=== PATIENT | male | born 1945 | race African-American/Black ===

== ENCOUNTER 2017-07-30 17:45 | Inpatient (IN) | payer MEDICARE, OTHER ==
[2017-07-30 19:42] LABS: % BASOPHILS 0.3 % (0.0-2.0); % LYMPHOCYTES 27.6 % (20.0-50.0); % MONOCYTES 7.9 % (2.0-10.0); % NEUTROPHILS 62.2 % (40.0-80.0); EOSINOPHILE ABSOLUTE 0.2 Th/cmm (0.1-0.4); HEMATOCRIT 42.3 % (41.0-60); HEMOGLOBIN 13.9 gm/dL (12-16); MEAN CORPUSCULAR HEMOGLOBIN 27.6 pg (27.0-31.0); MEAN CORPUSCULAR HGB CONC 32.9 pg (28.0-36.0); MEAN PLATELET VOLUME 11.3 fl; MONOCYTE ABSOLUTE 0.8 Th/cmm (0.3-1.0); NEUTROPHILE ABSOLUTE 6.7 Th/cmm (1.8-8.0); PLATELET COUNT 184 Th/cmm (150-400); RED BLOOD COUNT 5.03 Mil/cmm (3.80-5.80); RED CELL DISTRIBUTION WIDTH 14.2 % (11.5-20.0); WHITE BLOOD COUNT 10.7 Th/cmm (4.8-10.8)
--- NOTE | 2017-07-30 19:44 | ED Physician Chart ---
ED Chief Complaint/HPI - Patient Information Date Seen:: 07/30/17 Time Seen:: 18:00 Chief Complaint:: Depression History of Present Illness:: onset x 3 days of depression and decreased activity; no reportb of trauma, SIs, H/As, S/T, neck pain, C/P, SOB, Abd. Pain, A/N/V/D/C, fever, chills, or urinary s/s Allergies:: Allergies Allergy/AdvReac Type Severity Reaction Status Date / Time Penicillins Allergy Verified 07/30/17 18:01 Vitals:: Vital Signs - 8 hr 07/30/17 18:02 Temp 97.7 F HR 61 RR 17 BP 139/81 O2 Sat % 99 Historian:: Patient, EMS Review:: Nurse's Note Reviewed, Old Chart Reviewed, EMS run form Reviewed ED Review of Systems - Review of Systems General/Constitutional: No fever, No chills, No weight loss, No weakness, No diaphoresis, No edema, No loss of appetite Skin: No skin lesions, No rash, No bruising Head: No headache, No light-headedness Eyes: No loss of vision, No pain, No diplopia ENT: No earache, No nasal drainage, No sore throat, No tinnitus Neck: No neck pain, No swelling, No thyromegaly, No stiffness, No mass noted Cardio Vascular: No chest pain, No palpitations, No PND, No orthopnea, No edema Pulmonary: No SOB, No cough, No sputum, No wheezing GI: No nausea, No vomiting, No diarrhea, No pain, No melena, No hematochezia, No constipation, No hematemesis G/U: No dysuria, No frequency, No hematuria Musculoskeletal: No bone or joint pain, No back pain, No muscle pain Endocrine: No polyuria, No polydipsia Psychiatric: Prior psych history, Depression, Anxiety, No suicidal ideation, No homicidal ideation, No auditory hallucination, No visual hallucination Hematopoietic: No bruising, No lymphadenopathy Allergic/Immuno: No urticaria, No angioedema Neurological: No syncope, No focal symptoms, No weakness, No paresthesia, No headache, No seizure, No dizziness, No confusion, No vertigo ED Past Medical History - Past Medical History Obtainable: Yes Past Medical History: HTN, DM, CAD, CVA/TIA, Dyslipidemia Family History: Diabetes Melitus, HTN Social History: Non Smoker, No Alcohol, No Drug Use, Single, Care Facility Surgical History: None Psychiatricy History: Depression Medication: Reviewed ED Physical Exam - Physical Examination General/Constitutional: Awake, Well-developed, well-nourished, Alert, No distress, GCS 15, Non-toxic appearing, Ambulatory Head: Atraumatic Eyes: Lids, conjuctiva normal, PERRL, EOMI Skin: Nl inspection, No rash, No skin lesions, No ecchymosis, Well hydrated, No lymphadenopathy ENMT: External ears, nose nl, TM canals nl, Nasal exam nl, Lips, teeth, gums nl , Oropharynx nl, Tonsils nl Neck: Nontender, Full ROM w/o pain, No JVD, No nuchal rigidity, No bruit, No mass, No stridor Respiratory: Nl effort/Exclusion, Clear to Auscultation, No Wheeze/Rhonchi/Rales Cardio Vascular: RRR, No murmur, gallop, rubs, NL S1 S2, Carotid/Femoral/Distal pulses equal bilaterally GI: No tenderness/rebounding/guarding, No organomegaly, No hernia, Normal BS's, Nondistended, No mass/bruits, No McBurney tenderness : No CVA tenderness Extremities: No tenderness or effusion, Full ROM, normal strength in all extremities, No edema, Normal digits & nails Neuro/Psych: Alert/oriented, DTR's symmetric, Normal sensory exam, Normal motor strength, Judgement/insight normal, Mood normal, Normal gait, No focal deficits Other Neuro/Psych comments:: + Psychomotor Retardation; Mood/Affect: Stable; no SIs Misc: Normal back, No paraspinal tenderness ED Labs/Radiology/EKG Results - Lab Results Comments:: unremarkable - EKG Interpretations EKG Time:: 19:50 Rate & Rhythm: 86; NSR Comments:: non-specific st-t changes ED Septic Shock - . Is Septic Shock (SBP<90, OR Lactate>4 mmol\L) present?: No - <6hrs of presentation: Vital Signs: Vital Signs - 8 hr 07/30/17 18:02 Temp 97.7 F HR 61 RR 17 BP 139/81 O2 Sat % 99 ED Reassessment (Disposition) - Reassessment Reassessment Condition:: Improved - Diagnosis Diagnosis:: Medical clearance; Depression - Aftercare/Follow up Instructions Aftercare/Follow-Up Instructions:: Counseled pt regarding lab results/diagnosis & need follow up, Counseled pt & family regarding lab results/diagnosis & need follow up - Patient Disposition Discharge/Transfer:: Acute Care w/in this hosp Admitted to:: [facility] Condition at Disposition:: Stable, Improved
[2017-07-30 20:06] LABS: ACETAMINOPHEN < 10.0 ug/mL (10.0-30.0); ALB/GLOB RATIO 1.3 (1.0-1.8); ALBUMIN 3.9 gm/dL (4.2-5.5); ALKALINE PHOSPHATASE 59 U/L (34-104); ANION GAP 9.4 (7.0-16.0); BILIRUBIN,TOTAL 0.4 mg/dL (0.3-1.0); BUN - UREA NITROGEN 17 mg/dL (7-25); CALCIUM SERUM 9.7 mg/dL (8.6-10.3); CARBON DIOXIDE 29.1 mEq/L (21.0-31.0); CHLORIDE 106 mEq/L (98-107); CHOLESTEROL 139 mg/dL (<200); CREATININE - SERUM 1.5 mg/dL (0.7-1.3); GFR AFRICAN-AMERICAN 59.5 ml/min (>90); GFR NON AFRICAN-AMERICAN 49.2 ml/min; GLUCOSE 108 mg/dL (70-105); HDL -HIGH DENSITY LIPOPROTEIN 43 mg/dL (23-92); POTASSIUM SERUM 3.5 mEq/L (3.5-5.1); SALICYLATES (ASPIRIN) < 25.0 mg/L (30.0-100.0); SGOT 13 U/L (13-39); SGPT/ALT 14 U/L (7-52); SODIUM SERUM 141 mEq/L (136-145); TOTAL PROTEIN,SERUM 6.9 gm/dL (6.0-8.3); TRIGLYCERIDES 104 mg/dL (<150)
[2017-07-30 22:27] VITALS: BP 119/72
[2017-07-30] MEDS ORDERED: Hydrocodone/APAP 5mg/325mg Tab PO PRN (23:28)
[2017-07-30] MEDS ORDERED: Magnesium Hydroxide (MOM) 30 mL UDC PO PRN (23:28)
[2017-07-31] MEDS: Pantoprazole 40 mg EC Tab PO SCH (08:21)
[2017-07-31] MEDS: Multivitamin w/ Minerals Tab PO SCH (08:21)
[2017-07-31] MEDS: Potassium Chloride 10 mEq ER Tab PO SCH (08:23)
--- NOTE | 2017-07-31 16:32 | Internal Medicine Prog Note ---
Internal Medicine Subjective - Subjective Service Date: 07/31/17 ([id number] hn) Internal Medicine Objective - Results Result Diagrams: 07/30/17 19:33 07/30/17 19:33 Recent Labs: Laboratory Last Values WBC 10.7 Th/cmm (4.8-10.8) 07/30/17 19:33 RBC 5.03 Mil/cmm (3.80-5.80) 07/30/17 19:33 Hgb 13.9 gm/dL (12-16) 07/30/17 19:33 Hct 42.3 % (41.0-60) 07/30/17 19:33 MCV 84.0 fl (80-99) 07/30/17 19:33 MCH 27.6 pg (27.0-31.0) 07/30/17 19:33 MCHC Differential 32.9 pg (28.0-36.0) 07/30/17 19:33 RDW 14.2 % (11.5-20.0) 07/30/17 19:33 Plt Count 184 Th/cmm (150-400) 07/30/17 19:33 MPV 11.3 fl 07/30/17 19:33 Neutrophils % 62.2 % (40.0-80.0) 07/30/17 19:33 Lymphocytes % 27.6 % (20.0-50.0) 07/30/17 19:33 Monocytes % 7.9 % (2.0-10.0) 07/30/17 19:33 Eosinophils % 2.0 % (0.0-5.0) 07/30/17 19:33 Basophils % 0.3 % (0.0-2.0) 07/30/17 19:33 Sodium 141 mEq/L (136-145) 07/30/17 19:33 Potassium 3.5 mEq/L (3.5-5.1) 07/30/17 19:33 Chloride 106 mEq/L (98-107) 07/30/17 19:33 Carbon Dioxide 29.1 mEq/L (21.0-31.0) 07/30/17 19:33 Anion Gap 9.4 (7.0-16.0) 07/30/17 19:33 BUN 17 mg/dL (7-25) 07/30/17 19:33 Creatinine 1.5 mg/dL (0.7-1.3) H 07/30/17 19:33 Est GFR ( Amer) 59.5 ml/min (>90) 07/30/17 19:33 Est GFR (Non-Af Amer) 49.2 ml/min 07/30/17 19:33 BUN/Creatinine Ratio 11.3 07/30/17 19:33 Glucose 108 mg/dL (70-105) H 07/30/17 19:33 Calcium 9.7 mg/dL (8.6-10.3) 07/30/17 19:33 Total Bilirubin 0.4 mg/dL (0.3-1.0) 07/30/17 19:33 AST 13 U/L (13-39) 07/30/17 19:33 ALT 14 U/L (7-52) 07/30/17 19:33 Alkaline Phosphatase 59 U/L (34-104) 07/30/17 19:33 Total Protein 6.9 gm/dL (6.0-8.3) 07/30/17 19:33 Albumin 3.9 gm/dL (4.2-5.5) L 07/30/17 19:33 Globulin 3.0 gm/dL 07/30/17 19:33 Albumin/Globulin Ratio 1.3 (1.0-1.8) 07/30/17 19:33 Triglycerides 104 mg/dL (<150) 07/30/17 19:33 Cholesterol 139 mg/dL (<200) 07/30/17 19:33 LDL Cholesterol Direct 85 mg/dL (75-193) 07/30/17 19:33 HDL Cholesterol 43 mg/dL (23-92) 07/30/17 19:33 TSH 1.58 uIU/ml (0.34-5.60) 07/30/17 19:33 Salicylates < 25.0 mg/L (30.0-100.0) L 07/30/17 19:33 Acetaminophen < 10.0 ug/mL (10.0-30.0) L 07/30/17 19:33 Ethyl Alcohol < 10 mg/dL (0-10) 07/30/17 19:33 - Physical Exam Vitals and I&O: Vital Signs Temp 97.4 F 07/31/17 15:56 Pulse 65 07/31/17 15:56 Resp 18 07/31/17 15:56 BP 116/71 07/31/17 15:56 Pulse Ox 97 07/31/17 15:56 Intake & Output 07/30/17 07/31/17 07/31/17 18:59 06:59 18:59 Intake Total 0 Balance 0 Intake: Oral 0 Other: # Voids 1 Active Medications: Current Medications Acetaminophen/Hydrocodone Bitart ([place] 5mg/325mg) 1 tab PO BID PRN PRN Reason: Pain (Moderate) Stop: 09/28/17 23:27 Amlodipine Besylate (Norvasc) 10 mg PO QPM [facility] Stop: 09/29/17 16:59 Aspirin (Ecotrin) 81 mg PO DAILY [facility] Stop: 09/29/17 15:14 Bisacodyl (Dulcolax 10 Mg Supp) 10 mg RC DAILY PRN PRN Reason: IF MOM INEFFECTIVE Stop: 09/28/17 23:27 Calcium Carbonate (Os-James) 500 mg PO BID [facility] Stop: 09/29/17 08:59 Last Admin: 07/31/17 08:21 Dose: 500 mg Citalopram Hydrobromide (Celexa) 5 mg PO DAILY [facility] Stop: 09/29/17 08:59 Last Admin: 07/31/17 08:22 Dose: 5 mg Clopidogrel Bisulfate (Plavix) 75 mg PO DAILY [facility] Stop: 09/29/17 08:59 Last Admin: 07/31/17 08:22 Dose: 75 mg Docusate Sodium (Colace) 200 mg PO BID [facility] Stop: 09/29/17 08:59 Last Admin: 07/31/17 08:21 Dose: 200 mg Furosemide (Lasix) 40 mg PO 1200 [facility] Stop: 09/29/17 11:59 Last Admin: 07/31/17 12:16 Dose: 40 mg Furosemide (Lasix) 80 mg PO 0900 [facility] Stop: 09/29/17 08:59 Last Admin: 07/31/17 08:21 Dose: 80 mg Levetiracetam (Keppra) 250 mg PO DAILY [facility] Stop: 09/29/17 08:59 Last Admin: 07/31/17 08:21 Dose: 250 mg Levetiracetam (Keppra) 500 mg PO HS [facility] Stop: 09/29/17 20:59 Lisinopril (Zestril) 10 mg PO DAILY IV[facility] Stop: 09/29/17 08:59 Last Admin: 07/31/17 08:22 Dose: 10 mg Lorazepam (Ativan) 0.5 mg PO Q4HR PRN; Protocol PRN Reason: Anxiety Stop: 08/29/17 23:15 Magnesium Hydroxide (Milk Of Magnesia) 30 ml PO DAILY PRN PRN Reason: BOWEL MANAGEMENT Stop: 09/28/17 23:27 Pantoprazole Sodium (Protonix) 40 mg PO DAILY [facility] Stop: 09/29/17 08:59 Last Admin: 07/31/17 08:21 Dose: 40 mg Potassium Chloride (Klor-Con) 30 meq PO DAILY [facility] Stop: 09/29/17 08:59 Last Admin: 07/31/17 08:23 Dose: 30 meq Senna (Senna) 17.2 mg PO BID [facility] Stop: 09/29/17 08:59 Last Admin: 07/31/17 08:22 Dose: 17.2 mg Simvastatin (Zocor) 20 mg PO HS IVETH PRN Reason: Protocol Stop: 09/29/17 20:59 Vitamin D (Vitamin D) 800 iu PO DAILY [facility] Stop: 09/29/17 08:59 Last Admin: 07/31/17 08:21 Dose: 800 iu Zolpidem Tartrate (Ambien) 5 mg PO HS PRN PRN Reason: Insomnia Stop: 09/28/17 23:15
--- NOTE | 2017-07-31 18:44 | History & Physical ---
ADMIT DATE: 07/31/2017 DICTATING FOR: Jimbo Bey DO CHIEF COMPLAINT: Depression. HISTORY OF PRESENT ILLNESS: This is a 71-year-old -Burm[place] male who is admitted to the Geropsych Unit due to a 3-day history of depression. The patient denies any fevers, chills, night sweats, weight loss or any chest pain. PAST MEDICAL HISTORY: Hypertension, diabetes, CAD, CVA, TIA, dyslipidemia. PAST SURGICAL HISTORY: None. ALLERGIES: PENICILLIN. SOCIAL HISTORY: The patient is a detention resident, requiring 24-hour nursing care. MEDICATIONS: Please see medication list. REVIEW OF SYSTEMS: GENERAL: Denies any fevers or any chills. CARDIOVASCULAR: Denies chest pain. RESPIRATORY: Denies shortness of breath. GASTROINTESTINAL: Denies nausea, vomiting, and abdominal pain. GENITOURINARY: Denies increased frequency or dysuria. NEUROLOGIC: No headaches, seizures or syncope. All other systems are reviewed and are negative. PHYSICAL EXAMINATION: GENERAL: The patient is well-developed, well-nourished, no acute distress. VITAL SIGNS: Temperature 97.4, heart rate 65, blood pressure 116/71, respirations 18, O2 97%. HEENT: Head normocephalic, atraumatic. NECK: Supple. No mass. LUNGS: Clear bilaterally. HEART: Regular rate and rhythm. ABDOMEN: Soft, nontender. LABORATORY DATA: WBC 10.7, H and H 13.9 and 42.3, platelet of 184. Sodium 141, potassium 3.5, chloride 106, BUN 17, creatinine 1.5, albumin 3.9. ASSESSMENT: 1. Depression. 2. Mild protein-calorie malnutrition. 3. Diabetes. 4. History of CVA. 5. Hypertension. 6. CAD. 7. Dyslipidemia. PLAN: We will monitor the patient. We will do Accu-Chek with sliding scale. We will adjust the patient's blood pressure medications accordingly. We will continue to follow this patient. [facility]# [id number]
--- NOTE | 2017-08-01 05:43 | Psychosocial Evaluation ---
DATE OF SERVICE: 07/30/2017 IDENTIFYING DATA: The patient is a 71-year-old -[place] male, resident of [facility]. JUSTIFICATION OF HOSPITALIZATION: The patient is admitted here for his aggressive behavior. CHIEF COMPLAINT: "I am upset." HISTORY OF PRESENT ILLNESS: This is the first psychiatric hospitalization to the [facility] for this patient, who is reported to have multiple medical problems. On the day of the hospitalization, the patient is reported to have been getting easily irritable, angry and upset. The patient could not be contained at a lower level of care and hence, the patient has been transferred over here for further stabilization. Review of the chart indicates that the patient is being maintained on Celexa 5 mg on a daily basis for his depression. PAST PSYCHIATRIC HISTORY: Details are not known. MEDICAL HISTORY: Physical examination is requested to be done by Dr. Bey. SUBSTANCE ABUSE HISTORY: None. PHYSICAL OR SEXUAL ABUSE HISTORY: None. LEGAL PROBLEMS: None at this time. MENTAL STATUS EXAMINATION: The patient is a 71-year-old, looking his stated age, moderately obese, superficially cooperative. Eye contact is poor. Mood is noted to be irritable. Affect is constricted. The patient is reported to have multiple medical problems. He has history cerebrovascular accident with hemiplegia, hypertension, seizure disorder, diabetes mellitus type 2 with nephropathy, chronic kidney disease, and hyperlipidemia. The patient is stating that he has been doing okay, but the patient is getting easily irritable. The patient has been lately losing his appetite and has been not able to care for self and also the patient has been getting easily irritable and angry and hence, the patient has been referred over here for further stabilization. The patient is alert and awake and the patient knows that he is in the hospital. The patient has been getting easily irritable. No clear psychotic symptoms are noted. The patient's short term memory is noted to be poor. Long-term memory seems to be fair at this time. The patient's insight and judgment are noted to be impaired. DIAGNOSTIC IMPRESSION: AXIS I: Major depressive disorder and moderate. AXIS II: None. AXIS III: As per Dr. eBy. IMMEDIATE TREATMENT PLAN: The patient is going to be observed on the inpatient unit. Provide with supportive psychotherapy. The patient is going to be closely monitored. Encouraged him to participate in the groups and verbalize the concerns. Once stabilized, the patient is going to be discharged to self to be followed up on an outpatient basis. JOB# [id number]
[2017-08-01] MEDS: Pantoprazole 40 mg EC Tab PO SCH (08:15)
[2017-08-01] MEDS: Potassium Chloride 10 mEq ER Tab PO SCH (08:15)
[2017-08-01] MEDS: Multivitamin w/ Minerals Tab PO SCH (08:16)
--- NOTE | 2017-08-01 13:54 | Internal Medicine Prog Note ---
Internal Medicine Subjective - Subjective Service Date: 08/01/17 Patient seen and examined:: with staff Patient is:: awake, in wheelchair Per staff patient has:: tolerating meds Internal Medicine Objective - Results Result Diagrams: 07/30/17 19:33 07/30/17 19:33 Recent Labs: Laboratory Last Values WBC 10.7 Th/cmm (4.8-10.8) 07/30/17 19:33 RBC 5.03 Mil/cmm (3.80-5.80) 07/30/17 19:33 Hgb 13.9 gm/dL (12-16) 07/30/17 19:33 Hct 42.3 % (41.0-60) 07/30/17 19:33 MCV 84.0 fl (80-99) 07/30/17 19:33 MCH 27.6 pg (27.0-31.0) 07/30/17 19:33 MCHC Differential 32.9 pg (28.0-36.0) 07/30/17 19:33 RDW 14.2 % (11.5-20.0) 07/30/17 19:33 Plt Count 184 Th/cmm (150-400) 07/30/17 19:33 MPV 11.3 fl 07/30/17 19:33 Neutrophils % 62.2 % (40.0-80.0) 07/30/17 19:33 Lymphocytes % 27.6 % (20.0-50.0) 07/30/17 19:33 Monocytes % 7.9 % (2.0-10.0) 07/30/17 19:33 Eosinophils % 2.0 % (0.0-5.0) 07/30/17 19:33 Basophils % 0.3 % (0.0-2.0) 07/30/17 19:33 Sodium 141 mEq/L (136-145) 07/30/17 19:33 Potassium 3.5 mEq/L (3.5-5.1) 07/30/17 19:33 Chloride 106 mEq/L (98-107) 07/30/17 19:33 Carbon Dioxide 29.1 mEq/L (21.0-31.0) 07/30/17 19:33 Anion Gap 9.4 (7.0-16.0) 07/30/17 19:33 BUN 17 mg/dL (7-25) 07/30/17 19:33 Creatinine 1.5 mg/dL (0.7-1.3) H 07/30/17 19:33 Est GFR ( Amer) 59.5 ml/min (>90) 07/30/17 19:33 Est GFR (Non-Af Amer) 49.2 ml/min 07/30/17 19:33 BUN/Creatinine Ratio 11.3 07/30/17 19:33 Glucose 108 mg/dL (70-105) H 07/30/17 19:33 Hemoglobin A1c % 7.0 % (4.0-6.0) H 07/30/17 19:33 Calcium 9.7 mg/dL (8.6-10.3) 07/30/17 19:33 Total Bilirubin 0.4 mg/dL (0.3-1.0) 07/30/17 19:33 AST 13 U/L (13-39) 07/30/17 19:33 ALT 14 U/L (7-52) 07/30/17 19:33 Alkaline Phosphatase 59 U/L (34-104) 07/30/17 19:33 Total Protein 6.9 gm/dL (6.0-8.3) 07/30/17 19:33 Albumin 3.9 gm/dL (4.2-5.5) L 07/30/17 19:33 Globulin 3.0 gm/dL 07/30/17 19:33 Albumin/Globulin Ratio 1.3 (1.0-1.8) 07/30/17 19:33 Triglycerides 104 mg/dL (<150) 07/30/17 19:33 Cholesterol 139 mg/dL (<200) 07/30/17 19:33 LDL Cholesterol Direct 85 mg/dL (75-193) 07/30/17 19:33 HDL Cholesterol 43 mg/dL (23-92) 07/30/17 19:33 TSH 1.58 uIU/ml (0.34-5.60) 07/30/17 19:33 Salicylates < 25.0 mg/L (30.0-100.0) L 07/30/17 19:33 Acetaminophen < 10.0 ug/mL (10.0-30.0) L 07/30/17 19:33 Ethyl Alcohol < 10 mg/dL (0-10) 07/30/17 19:33 RPR NONREACTIVE (NONREACTIVE) 07/30/17 19:33 - Physical Exam Vitals and I&O: Vital Signs Temp 96.8 F 08/01/17 05:40 Pulse 68 08/01/17 08:17 Resp 20 08/01/17 05:40 BP 128/70 08/01/17 08:17 Pulse Ox 98 08/01/17 05:40 Intake & Output 07/31/17 08/01/17 08/01/17 18:59 06:59 18:59 Intake Total 1020 560 Balance 1020 560 Intake: Oral 1020 560 Other: # Voids 5 2 # Bowel Movements 0 Stool Characteristics Formed Formed Active Medications: Current Medications Acetaminophen/Hydrocodone Bitart ([place] 5mg/325mg) 1 tab PO BID PRN PRN Reason: Pain (Moderate) Stop: 09/28/17 23:27 Amlodipine Besylate (Norvasc) 10 mg PO QPM [facility] Stop: 09/29/17 16:59 Last Admin: 07/31/17 17:18 Dose: 10 mg Aspirin (Ecotrin) 81 mg PO DAILY [facility] Stop: 09/29/17 15:14 Last Admin: 08/01/17 08:16 Dose: 81 mg Bisacodyl (Dulcolax 10 Mg Supp) 10 mg RC DAILY PRN PRN Reason: IF MOM INEFFECTIVE Stop: 09/28/17 23:27 Calcium Carbonate (Os-James) 500 mg PO BID [facility] Stop: 09/29/17 08:59 Last Admin: 08/01/17 08:16 Dose: 500 mg Citalopram Hydrobromide (Celexa) 5 mg PO DAILY [facility] Stop: 09/29/17 08:59 Last Admin: 08/01/17 08:16 Dose: 5 mg Clopidogrel Bisulfate (Plavix) 75 mg PO DAILY [facility] Stop: 09/29/17 08:59 Last Admin: 08/01/17 08:14 Dose: 75 mg Docusate Sodium (Colace) 200 mg PO BID [facility] Stop: 09/29/17 08:59 Last Admin: 08/01/17 08:15 Dose: 200 mg Furosemide (Lasix) 40 mg PO 1200 [facility] Stop: 09/29/17 11:59 Last Admin: 08/01/17 13:00 Dose: Not Given Furosemide (Lasix) 80 mg PO 0900 [facility] Stop: 09/29/17 08:59 Last Admin: 08/01/17 08:14 Dose: 80 mg Levetiracetam (Keppra) 250 mg PO DAILY [facility] Stop: 09/29/17 08:59 Last Admin: 08/01/17 08:16 Dose: 250 mg Levetiracetam (Keppra) 500 mg PO HS [facility] Stop: 09/29/17 20:59 Last Admin: 07/31/17 21:54 Dose: Not Given Lisinopril (Zestril) 10 mg PO DAILY [facility] Stop: 09/29/17 08:59 Last Admin: 08/01/17 08:17 Dose: 10 mg Lorazepam (Ativan) 0.5 mg PO Q4HR PRN; Protocol PRN Reason: Anxiety Stop: 08/29/17 23:15 Magnesium Hydroxide (Milk Of Magnesia) 30 ml PO DAILY PRN PRN Reason: BOWEL MANAGEMENT Stop: 09/28/17 23:27 Pantoprazole Sodium (Protonix) 40 mg PO DAILY [facility] Stop: 09/29/17 08:59 Last Admin: 08/01/17 08:15 Dose: 40 mg Potassium Chloride (Klor-Con) 30 meq PO DAILY [facility] Stop: 09/29/17 08:59 Last Admin: 08/01/17 08:15 Dose: 30 meq Senna (Senna) 17.2 mg PO BID [facility] Stop: 09/29/17 08:59 Last Admin: 08/01/17 08:16 Dose: 17.2 mg Simvastatin (Zocor) 20 mg PO HS [facility] PRN Reason: Protocol Stop: 09/29/17 20:59 Last Admin: 07/31/17 21:54 Dose: Not Given Vitamin D (Vitamin D) 800 iu PO DAILY [facility] Stop: 09/29/17 08:59 Last Admin: 08/01/17 08:14 Dose: 800 iu Zolpidem Tartrate (Ambien) 5 mg PO HS PRN PRN Reason: Insomnia Stop: 09/28/17 23:15 General: alert HEENT: NC/AT, PERRLA Neck: Supple Lungs: CTAB Cardiovascular: RRR, Normal S1, Normal S2, without murmur Abdomen: soft, non-tender, non-distended, positive bowel sound Neurological: alert Internal Medicine Assmt/Plan - Assessment Assessment: depression mild protein calorie malnutrition dm hx cva htn cad dyslipidemia - Plan Plan: monitor BP will adjust bp meds accordingly fall precautions continue current plan of care
--- NOTE | 2017-08-02 03:24 | Progress Notes ---
DATE: 08/01/2017 SUBJECTIVE: Staff was spoken to. The patient is interviewed. Mood is noted to be depressed. Affect is constricted. The patient is isolative and withdrawn. Insight and judgment at this time are noted to be still impaired. Impulse control seems to be limited. Coping skills are noted to be poor. The patient has been not presenting with any suicidal threats, but the patient is getting easily frustrated. ASSESSMENT: The patient is still depressed. PLAN: To continue the patient with citalopram and followup. JOB# [id number]
[2017-08-02] MEDS: Potassium Chloride 10 mEq ER Tab PO SCH (09:55)
[2017-08-02] MEDS: Pantoprazole 40 mg EC Tab PO SCH (09:59)
[2017-08-02] MEDS: Multivitamin w/ Minerals Tab PO SCH (09:59)
--- NOTE | 2017-08-02 14:48 | Internal Medicine Prog Note ---
Internal Medicine Subjective - Subjective Patient seen and examined:: with staff, chart reviewed Patient is:: awake, in wheelchair Per staff patient has:: no adverse event, agitated, tolerating meds Internal Medicine Objective - Results Result Diagrams: 07/30/17 19:33 07/30/17 19:33 Recent Labs: Laboratory Last Values WBC 10.7 Th/cmm (4.8-10.8) 07/30/17 19:33 RBC 5.03 Mil/cmm (3.80-5.80) 07/30/17 19:33 Hgb 13.9 gm/dL (12-16) 07/30/17 19:33 Hct 42.3 % (41.0-60) 07/30/17 19:33 MCV 84.0 fl (80-99) 07/30/17 19:33 MCH 27.6 pg (27.0-31.0) 07/30/17 19:33 MCHC Differential 32.9 pg (28.0-36.0) 07/30/17 19:33 RDW 14.2 % (11.5-20.0) 07/30/17 19:33 Plt Count 184 Th/cmm (150-400) 07/30/17 19:33 MPV 11.3 fl 07/30/17 19:33 Neutrophils % 62.2 % (40.0-80.0) 07/30/17 19:33 Lymphocytes % 27.6 % (20.0-50.0) 07/30/17 19:33 Monocytes % 7.9 % (2.0-10.0) 07/30/17 19:33 Eosinophils % 2.0 % (0.0-5.0) 07/30/17 19:33 Basophils % 0.3 % (0.0-2.0) 07/30/17 19:33 Sodium 141 mEq/L (136-145) 07/30/17 19:33 Potassium 3.5 mEq/L (3.5-5.1) 07/30/17 19:33 Chloride 106 mEq/L (98-107) 07/30/17 19:33 Carbon Dioxide 29.1 mEq/L (21.0-31.0) 07/30/17 19:33 Anion Gap 9.4 (7.0-16.0) 07/30/17 19:33 BUN 17 mg/dL (7-25) 07/30/17 19:33 Creatinine 1.5 mg/dL (0.7-1.3) H 07/30/17 19:33 Est GFR ( Amer) 59.5 ml/min (>90) 07/30/17 19:33 Est GFR (Non-Af Amer) 49.2 ml/min 07/30/17 19:33 BUN/Creatinine Ratio 11.3 07/30/17 19:33 Glucose 108 mg/dL (70-105) H 07/30/17 19:33 Hemoglobin A1c % 7.0 % (4.0-6.0) H 07/30/17 19:33 Calcium 9.7 mg/dL (8.6-10.3) 07/30/17 19:33 Total Bilirubin 0.4 mg/dL (0.3-1.0) 07/30/17 19:33 AST 13 U/L (13-39) 07/30/17 19:33 ALT 14 U/L (7-52) 07/30/17 19:33 Alkaline Phosphatase 59 U/L (34-104) 07/30/17 19:33 Total Protein 6.9 gm/dL (6.0-8.3) 07/30/17 19:33 Albumin 3.9 gm/dL (4.2-5.5) L 07/30/17 19:33 Globulin 3.0 gm/dL 07/30/17 19:33 Albumin/Globulin Ratio 1.3 (1.0-1.8) 07/30/17 19:33 Triglycerides 104 mg/dL (<150) 07/30/17 19:33 Cholesterol 139 mg/dL (<200) 07/30/17 19:33 LDL Cholesterol Direct 85 mg/dL (75-193) 07/30/17 19:33 HDL Cholesterol 43 mg/dL (23-92) 07/30/17 19:33 TSH 1.58 uIU/ml (0.34-5.60) 07/30/17 19:33 Salicylates < 25.0 mg/L (30.0-100.0) L 07/30/17 19:33 Acetaminophen < 10.0 ug/mL (10.0-30.0) L 07/30/17 19:33 Ethyl Alcohol < 10 mg/dL (0-10) 07/30/17 19:33 RPR NONREACTIVE (NONREACTIVE) 07/30/17 19:33 - Physical Exam Vitals and I&O: Vital Signs Temp 97 F 08/02/17 05:00 Pulse 80 08/02/17 09:58 Resp 18 08/02/17 05:00 BP 117/71 08/02/17 09:58 Pulse Ox 96 08/02/17 05:00 Intake & Output 08/01/17 08/02/17 08/02/17 18:59 06:59 18:59 Intake Total 960 480 Balance 960 480 Intake: Oral 960 480 Other: # Voids 3 2 # Bowel Movements 1 Stool Characteristics Formed Formed Active Medications: Current Medications Acetaminophen/Hydrocodone Bitart ([place] 5mg/325mg) 1 tab PO BID PRN PRN Reason: Pain (Moderate) Stop: 09/28/17 23:27 Amlodipine Besylate (Norvasc) 10 mg PO QPM [facility] Stop: 09/29/17 16:59 Last Admin: 08/01/17 16:54 Dose: 10 mg Aspirin (Ecotrin) 81 mg PO DAILY [facility] Stop: 09/29/17 15:14 Last Admin: 08/02/17 09:58 Dose: 81 mg Bisacodyl (Dulcolax 10 Mg Supp) 10 mg RC DAILY PRN PRN Reason: IF MOM INEFFECTIVE Stop: 09/28/17 23:27 Calcium Carbonate (Os-James) 500 mg PO BID [facility] Stop: 09/29/17 08:59 Last Admin: 08/02/17 09:59 Dose: 500 mg Citalopram Hydrobromide (Celexa) 10 mg PO DAILY [facility] Stop: 09/30/17 17:58 Last Admin: 08/02/17 09:57 Dose: 10 mg Clopidogrel Bisulfate (Plavix) 75 mg PO DAILY [facility] Stop: 09/29/17 08:59 Last Admin: 08/02/17 09:55 Dose: 75 mg Docusate Sodium (Colace) 200 mg PO BID [facility] Stop: 09/29/17 08:59 Last Admin: 08/02/17 09:55 Dose: 200 mg Furosemide (Lasix) 40 mg PO 0900 [facility] Stop: 10/01/17 14:45 Furosemide (Lasix) 40 mg PO 1800 [facility] Stop: 10/01/17 17:59 Levetiracetam (Keppra) 250 mg PO DAILY [facility] Stop: 09/29/17 08:59 Last Admin: 08/02/17 09:59 Dose: 250 mg Levetiracetam (Keppra) 500 mg PO HS [facility] Stop: 09/29/17 20:59 Last Admin: 08/01/17 21:36 Dose: 500 mg Lisinopril (Zestril) 10 mg PO DAILY [facility] Stop: 09/29/17 08:59 Last Admin: 08/02/17 09:58 Dose: 10 mg Lorazepam (Ativan) 0.5 mg PO Q4HR PRN; Protocol PRN Reason: Anxiety Stop: 08/29/17 23:15 Magnesium Hydroxide (Milk Of Magnesia) 30 ml PO DAILY PRN PRN Reason: BOWEL MANAGEMENT Stop: 09/28/17 23:27 Pantoprazole Sodium (Protonix) 40 mg PO DAILY [facility] Stop: 09/29/17 08:59 Last Admin: 08/02/17 09:59 Dose: 40 mg Potassium Chloride (Klor-Con) 30 meq PO DAILY [facility] Stop: 09/29/17 08:59 Last Admin: 08/02/17 09:55 Dose: 30 meq Senna (Senna) 17.2 mg PO BID [facility] Stop: 09/29/17 08:59 Last Admin: 08/02/17 09:59 Dose: 17.2 mg Simvastatin (Zocor) 20 mg PO HS [facility] PRN Reason: Protocol Stop: 09/29/17 20:59 Last Admin: 08/01/17 21:37 Dose: 20 mg Vitamin D (Vitamin D) 800 iu PO DAILY [facility] Stop: 09/29/17 08:59 Last Admin: 08/02/17 09:58 Dose: 800 iu Zolpidem Tartrate (Ambien) 5 mg PO HS PRN PRN Reason: Insomnia Stop: 09/28/17 23:15 General: alert HEENT: NC/AT, PERRLA Neck: Supple Lungs: CTAB Cardiovascular: RRR, Normal S1, Normal S2, without murmur Abdomen: soft, non-tender, non-distended, positive bowel sound Neurological: alert Internal Medicine Assmt/Plan - Assessment Assessment: - Assessment Assessment: depression mild protein calorie malnutrition dm hx cva htn cad dyslipidemia - Plan Plan: monitor BP will adjust bp meds accordingly fall precautions continue current plan of care - Plan Plan: see orders
--- NOTE | 2017-08-02 17:24 | Progress Notes ---
DATE: 08/02/2017 SUBJECTIVE: Staff was spoken to. Patient is interviewed. Mood is noted to be depressed. Affect is constricted. The patient is isolative and withdrawn. Insight and judgment noted to be still impaired. Coping skills are noted to be very poor. The patient feels frustrated and has been having difficult time to deal with his medical issues. ASSESSMENT: The patient is still depressed. PLAN: To continue the patient with the supportive therapy, encouraged the patient to verbalize the concerns rather than to act out. [facility]# [id number]
[2017-08-03] MEDS: Pantoprazole 40 mg EC Tab PO SCH (09:44)
[2017-08-03] MEDS: Potassium Chloride 10 mEq ER Tab PO SCH (09:46)
[2017-08-03] MEDS: Multivitamin w/ Minerals Tab PO SCH (09:47)
--- NOTE | 2017-08-03 16:32 | Progress Notes ---
DATE: 08/03/2017 SUBJECTIVE: Staff was spoken to. The patient is interviewed. Mood is noted to be depressed. Affect is constricted. The patient is isolative and withdrawn. Coping skills are noted to be still poor. Insight and judgment also noted to be impaired. No suicidal plans are voiced, but the patient continues to be isolative and withdrawn. ASSESSMENT: The patient is still depressed. PLAN: To continue the patient with the supportive therapy and followup. JOB# [id number]
--- NOTE | 2017-08-03 21:27 | Internal Medicine Prog Note ---
Internal Medicine Subjective - Subjective Patient seen and examined:: with staff, chart reviewed Patient is:: awake, in wheelchair Per staff patient has:: no adverse event, agitated, tolerating meds Internal Medicine Objective - Results Result Diagrams: 07/30/17 19:33 07/30/17 19:33 Recent Labs: Laboratory Last Values WBC 10.7 Th/cmm (4.8-10.8) 07/30/17 19:33 RBC 5.03 Mil/cmm (3.80-5.80) 07/30/17 19:33 Hgb 13.9 gm/dL (12-16) 07/30/17 19:33 Hct 42.3 % (41.0-60) 07/30/17 19:33 MCV 84.0 fl (80-99) 07/30/17 19:33 MCH 27.6 pg (27.0-31.0) 07/30/17 19:33 MCHC Differential 32.9 pg (28.0-36.0) 07/30/17 19:33 RDW 14.2 % (11.5-20.0) 07/30/17 19:33 Plt Count 184 Th/cmm (150-400) 07/30/17 19:33 MPV 11.3 fl 07/30/17 19:33 Neutrophils % 62.2 % (40.0-80.0) 07/30/17 19:33 Lymphocytes % 27.6 % (20.0-50.0) 07/30/17 19:33 Monocytes % 7.9 % (2.0-10.0) 07/30/17 19:33 Eosinophils % 2.0 % (0.0-5.0) 07/30/17 19:33 Basophils % 0.3 % (0.0-2.0) 07/30/17 19:33 Sodium 141 mEq/L (136-145) 07/30/17 19:33 Potassium 3.5 mEq/L (3.5-5.1) 07/30/17 19:33 Chloride 106 mEq/L (98-107) 07/30/17 19:33 Carbon Dioxide 29.1 mEq/L (21.0-31.0) 07/30/17 19:33 Anion Gap 9.4 (7.0-16.0) 07/30/17 19:33 BUN 17 mg/dL (7-25) 07/30/17 19:33 Creatinine 1.5 mg/dL (0.7-1.3) H 07/30/17 19:33 Est GFR ( Amer) 59.5 ml/min (>90) 07/30/17 19:33 Est GFR (Non-Af Amer) 49.2 ml/min 07/30/17 19:33 BUN/Creatinine Ratio 11.3 07/30/17 19:33 Glucose 108 mg/dL (70-105) H 07/30/17 19:33 Hemoglobin A1c % 7.0 % (4.0-6.0) H 07/30/17 19:33 Calcium 9.7 mg/dL (8.6-10.3) 07/30/17 19:33 Total Bilirubin 0.4 mg/dL (0.3-1.0) 07/30/17 19:33 AST 13 U/L (13-39) 07/30/17 19:33 ALT 14 U/L (7-52) 07/30/17 19:33 Alkaline Phosphatase 59 U/L (34-104) 07/30/17 19:33 Total Protein 6.9 gm/dL (6.0-8.3) 07/30/17 19:33 Albumin 3.9 gm/dL (4.2-5.5) L 07/30/17 19:33 Globulin 3.0 gm/dL 07/30/17 19:33 Albumin/Globulin Ratio 1.3 (1.0-1.8) 07/30/17 19:33 Triglycerides 104 mg/dL (<150) 07/30/17 19:33 Cholesterol 139 mg/dL (<200) 07/30/17 19:33 LDL Cholesterol Direct 85 mg/dL (75-193) 07/30/17 19:33 HDL Cholesterol 43 mg/dL (23-92) 07/30/17 19:33 TSH 1.58 uIU/ml (0.34-5.60) 07/30/17 19:33 Salicylates < 25.0 mg/L (30.0-100.0) L 07/30/17 19:33 Acetaminophen < 10.0 ug/mL (10.0-30.0) L 07/30/17 19:33 Ethyl Alcohol < 10 mg/dL (0-10) 07/30/17 19:33 RPR NONREACTIVE (NONREACTIVE) 07/30/17 19:33 - Physical Exam Vitals and I&O: Vital Signs Temp 97.5 F 08/03/17 20:43 Pulse 64 08/03/17 20:43 Resp 18 08/03/17 20:43 BP 134/70 08/03/17 20:43 Pulse Ox 99 08/03/17 20:43 Intake & Output 08/03/17 08/03/17 08/04/17 06:59 18:59 06:59 Intake Total 480 520 240 Output Total 2 1 Balance 478 520 239 Intake: Oral 480 520 240 Output: Urine 2 1 Other: # Voids 1 2 # Bowel Movements 2 1 Stool Characteristics Formed Formed Active Medications: Current Medications Acetaminophen/Hydrocodone Bitart ([place] 5mg/325mg) 1 tab PO BID PRN PRN Reason: Pain (Moderate) Stop: 09/28/17 23:27 Amlodipine Besylate (Norvasc) 10 mg PO QPM [facility] Stop: 09/29/17 16:59 Last Admin: 08/03/17 17:15 Dose: 10 mg Aspirin (Ecotrin) 81 mg PO DAILY [facility] Stop: 09/29/17 15:14 Last Admin: 08/03/17 09:45 Dose: 81 mg Bisacodyl (Dulcolax 10 Mg Supp) 10 mg RC DAILY PRN PRN Reason: IF MOM INEFFECTIVE Stop: 09/28/17 23:27 Calcium Carbonate (Os-James) 500 mg PO BID [facility] Stop: 09/29/17 08:59 Last Admin: 08/03/17 17:14 Dose: 500 mg Citalopram Hydrobromide (Celexa) 10 mg PO DAILY [facility] Stop: 09/30/17 17:58 Last Admin: 08/03/17 09:46 Dose: 10 mg Clopidogrel Bisulfate (Plavix) 75 mg PO DAILY [facility] Stop: 09/29/17 08:59 Last Admin: 08/03/17 09:46 Dose: 75 mg Docusate Sodium (Colace) 200 mg PO BID [facility] Stop: 09/29/17 08:59 Last Admin: 08/03/17 17:15 Dose: 200 mg Furosemide (Lasix) 40 mg PO 0900 [facility] Stop: 10/01/17 14:45 Last Admin: 08/03/17 09:45 Dose: 40 mg Furosemide (Lasix) 40 mg PO 1800 [facility] Stop: 10/01/17 17:59 Last Admin: 08/02/17 18:13 Dose: 40 mg Levetiracetam (Keppra) 250 mg PO DAILY [facility] Stop: 09/29/17 08:59 Last Admin: 08/03/17 09:46 Dose: 250 mg Levetiracetam (Keppra) 500 mg PO HS [facility] Stop: 09/29/17 20:59 Last Admin: 08/02/17 21:31 Dose: 500 mg Lisinopril (Zestril) 10 mg PO DAILY [facility] Stop: 09/29/17 08:59 Last Admin: 08/03/17 09:45 Dose: 10 mg Lorazepam (Ativan) 0.5 mg PO Q4HR PRN; Protocol PRN Reason: Anxiety Stop: 08/29/17 23:15 Magnesium Hydroxide (Milk Of Magnesia) 30 ml PO DAILY PRN PRN Reason: BOWEL MANAGEMENT Stop: 09/28/17 23:27 Pantoprazole Sodium (Protonix) 40 mg PO DAILY [facility] Stop: 09/29/17 08:59 Last Admin: 08/03/17 09:44 Dose: 40 mg Potassium Chloride (Klor-Con) 30 meq PO DAILY [facility] Stop: 09/29/17 08:59 Last Admin: 08/03/17 09:46 Dose: 30 meq Senna (Senna) 17.2 mg PO BID [facility] Stop: 09/29/17 08:59 Last Admin: 08/03/17 17:14 Dose: 17.2 mg Simvastatin (Zocor) 20 mg PO HS [facility] PRN Reason: Protocol Stop: 09/29/17 20:59 Last Admin: 08/02/17 21:31 Dose: 20 mg Vitamin D (Vitamin D) 800 iu PO DAILY [facility] Stop: 09/29/17 08:59 Last Admin: 08/03/17 09:44 Dose: 800 iu Zolpidem Tartrate (Ambien) 5 mg PO HS PRN PRN Reason: Insomnia Stop: 09/28/17 23:15 Last Admin: 08/02/17 21:31 Dose: 5 mg General: alert HEENT: NC/AT, PERRLA Neck: Supple Lungs: CTAB Cardiovascular: RRR, Normal S1, Normal S2, without murmur Abdomen: soft, non-tender, non-distended, positive bowel sound Neurological: alert Internal Medicine Assmt/Plan - Assessment Assessment: - Assessment Assessment: depression mild protein calorie malnutrition dm hx cva htn cad dyslipidemia - Plan Plan: monitor BP will adjust bp meds accordingly fall precautions continue current plan of care - Plan Plan: see orders
--- NOTE | 2017-08-04 02:02 | Consultation ---
DATE OF CONSULTATION: 08/01/2017 REQUESTING PHYSICIAN: Aroldo Alfaro M.D. TYPE OF CONSULTATION: Psychology. HISTORY OF PRESENT ILLNESS: The patient is a 71-year-old -[place]. The patient is a resident of [facility]. The patient is being admitted due to persistent aggressive behavior at his facility. The following is by review of medical record and by the patient's self report. The patient is reported to have multiple medical problems and also has been getting easily agitated, angry, and upset at staff members as well as other peers. Upon interview with the patient, answered some clinical interview questions, but at times became selectively mute. The patient continued to state that he was upset about something going on at his facility but was not specific. He also is upset about being hospitalized. The patient denied any suicidal ideation, plan or intention. PAST MEDICAL HISTORY: Please see history and physical by Dr. Bey. PAST PSYCHIATRIC HISTORY: Unknown or unavailable at this time. SUBSTANCE ABUSE HISTORY: The patient did not answer these questions. No record available. CURRENT MEDICATIONS: Please see admission medication reconciliation. ALLERGIES: No known drug allergies. PSYCHOSOCIAL HISTORY: The patient is a resident of [facility]. The patient did not answer questions about the occupational history, educational history, or [employer] affiliation. He did not respond to questions regarding physical or sexual abuse history or any legal problems or issues. MENTAL STATUS EXAMINATION: The patient appears to be his stated age. The patient's attitude is superficially cooperative, but is easily agitated at times. Eye contact is poor. Speech is spontaneous. Mood is irritable. Affect is constricted. The patient continued to perseverate on his medical problems. Thought process involved the continued perseveration on his medical issues and needed constant cognitive redirection. The patient denied any auditory or visual hallucinations or any delusions. The patient's behavior has been difficult to redirect and has been getting irritable and angry according to the staff at his facility as well as the staff on this unit. There are apparent cognitive deficits; however, no psychotic symptomology. Concentration is poor and impulse control is poor. The patient did not participate in the memory evaluation. Immediate and short term memory seems to be poor, but long-term memory needs further evaluation. The patient is alert and oriented to person and place. The patient did not participate in the interpretation of proverbs. Insight is poor. Judgment is compromised. DIAGNOSTIC IMPRESSION: AXIS I: Major depressive disorder, recurrent, moderate. AXIS II: Deferred. AXIS III: Please see history and physical by Dr. Bey. PLAN: The patient has been seen by Dr. Alfaro for psychiatric evaluation and for the management of the patient's psychotropic medications. The patient is maintained on Celexa 5 mg for his depression. At the present time, the patient's medications will be reevaluated. We will provide supportive psychotherapy as well as cognitive behavioral therapy to reduce the patient's depression. We will provide coping strategies for phase of life issues. We will provide positive reinforcement and motivational enhancement for the patient to verbalize his concerns versus acting out verbally or physically. We will continue supportive therapy throughout the course of his hospital stay. Thank you, Dr. Alfaro for this consult and the opportunity to participate with you in this patient's care. JOB# [id number] DENIS
[2017-08-04] MEDS: Pantoprazole 40 mg EC Tab PO SCH (09:56)
[2017-08-04] MEDS: Multivitamin w/ Minerals Tab PO SCH (09:56)
[2017-08-04] MEDS: Potassium Chloride 10 mEq ER Tab PO SCH (09:56)
--- NOTE | 2017-08-04 13:20 | Internal Medicine Prog Note ---
Internal Medicine Subjective - Subjective Service Date: 08/04/17 Patient is:: awake, in wheelchair Per staff patient has:: no adverse event, agitated, tolerating meds Internal Medicine Objective - Results Result Diagrams: 07/30/17 19:33 07/30/17 19:33 Recent Labs: Laboratory Last Values WBC 10.7 Th/cmm (4.8-10.8) 07/30/17 19:33 RBC 5.03 Mil/cmm (3.80-5.80) 07/30/17 19:33 Hgb 13.9 gm/dL (12-16) 07/30/17 19:33 Hct 42.3 % (41.0-60) 07/30/17 19:33 MCV 84.0 fl (80-99) 07/30/17 19:33 MCH 27.6 pg (27.0-31.0) 07/30/17 19:33 MCHC Differential 32.9 pg (28.0-36.0) 07/30/17 19:33 RDW 14.2 % (11.5-20.0) 07/30/17 19:33 Plt Count 184 Th/cmm (150-400) 07/30/17 19:33 MPV 11.3 fl 07/30/17 19:33 Neutrophils % 62.2 % (40.0-80.0) 07/30/17 19:33 Lymphocytes % 27.6 % (20.0-50.0) 07/30/17 19:33 Monocytes % 7.9 % (2.0-10.0) 07/30/17 19:33 Eosinophils % 2.0 % (0.0-5.0) 07/30/17 19:33 Basophils % 0.3 % (0.0-2.0) 07/30/17 19:33 Sodium 141 mEq/L (136-145) 07/30/17 19:33 Potassium 3.5 mEq/L (3.5-5.1) 07/30/17 19:33 Chloride 106 mEq/L (98-107) 07/30/17 19:33 Carbon Dioxide 29.1 mEq/L (21.0-31.0) 07/30/17 19:33 Anion Gap 9.4 (7.0-16.0) 07/30/17 19:33 BUN 17 mg/dL (7-25) 07/30/17 19:33 Creatinine 1.5 mg/dL (0.7-1.3) H 07/30/17 19:33 Est GFR ( Amer) 59.5 ml/min (>90) 07/30/17 19:33 Est GFR (Non-Af Amer) 49.2 ml/min 07/30/17 19:33 BUN/Creatinine Ratio 11.3 07/30/17 19:33 Glucose 108 mg/dL (70-105) H 07/30/17 19:33 Hemoglobin A1c % 7.0 % (4.0-6.0) H 07/30/17 19:33 Calcium 9.7 mg/dL (8.6-10.3) 07/30/17 19:33 Total Bilirubin 0.4 mg/dL (0.3-1.0) 07/30/17 19:33 AST 13 U/L (13-39) 07/30/17 19:33 ALT 14 U/L (7-52) 07/30/17 19:33 Alkaline Phosphatase 59 U/L (34-104) 07/30/17 19:33 Total Protein 6.9 gm/dL (6.0-8.3) 07/30/17 19:33 Albumin 3.9 gm/dL (4.2-5.5) L 07/30/17 19:33 Globulin 3.0 gm/dL 07/30/17 19:33 Albumin/Globulin Ratio 1.3 (1.0-1.8) 07/30/17 19:33 Triglycerides 104 mg/dL (<150) 07/30/17 19:33 Cholesterol 139 mg/dL (<200) 07/30/17 19:33 LDL Cholesterol Direct 85 mg/dL (75-193) 07/30/17 19:33 HDL Cholesterol 43 mg/dL (23-92) 07/30/17 19:33 TSH 1.58 uIU/ml (0.34-5.60) 07/30/17 19:33 Salicylates < 25.0 mg/L (30.0-100.0) L 07/30/17 19:33 Acetaminophen < 10.0 ug/mL (10.0-30.0) L 07/30/17 19:33 Ethyl Alcohol < 10 mg/dL (0-10) 07/30/17 19:33 RPR NONREACTIVE (NONREACTIVE) 07/30/17 19:33 - Physical Exam Vitals and I&O: Vital Signs Temp 96.7 F 08/04/17 06:05 Pulse 60 08/04/17 06:05 Resp 18 08/04/17 06:05 BP 125/77 08/04/17 06:05 Pulse Ox 98 08/04/17 06:05 Intake & Output 08/03/17 08/04/17 08/04/17 18:59 06:59 18:59 Intake Total 520 480 Output Total 2 Balance 520 478 Intake: Oral 520 480 Output: Urine 2 Other: # Voids 2 # Bowel Movements 1 Stool Characteristics Formed Active Medications: Current Medications Acetaminophen/Hydrocodone Bitart ([place] 5mg/325mg) 1 tab PO BID PRN PRN Reason: Pain (Moderate) Stop: 09/28/17 23:27 Amlodipine Besylate (Norvasc) 10 mg PO QPM [facility] Stop: 09/29/17 16:59 Last Admin: 08/03/17 17:15 Dose: 10 mg Aspirin (Ecotrin) 81 mg PO DAILY [facility] Stop: 09/29/17 15:14 Last Admin: 08/04/17 09:56 Dose: 81 mg Bisacodyl (Dulcolax 10 Mg Supp) 10 mg RC DAILY PRN PRN Reason: IF MOM INEFFECTIVE Stop: 09/28/17 23:27 Calcium Carbonate (Os-James) 500 mg PO BID [facility] Stop: 09/29/17 08:59 Last Admin: 08/04/17 09:55 Dose: 500 mg Citalopram Hydrobromide (Celexa) 10 mg PO DAILY [facility] Stop: 09/30/17 17:58 Last Admin: 08/04/17 09:55 Dose: 10 mg Clopidogrel Bisulfate (Plavix) 75 mg PO DAILY [facility] Stop: 09/29/17 08:59 Last Admin: 08/04/17 09:55 Dose: 75 mg Docusate Sodium (Colace) 200 mg PO BID [facility] Stop: 09/29/17 08:59 Last Admin: 08/04/17 09:54 Dose: 200 mg Furosemide (Lasix) 40 mg PO 0900 [facility] Stop: 10/01/17 14:45 Last Admin: 08/04/17 09:57 Dose: Not Given Furosemide (Lasix) 40 mg PO 1800 [facility] Stop: 10/01/17 17:59 Last Admin: 08/02/17 18:13 Dose: 40 mg Levetiracetam (Keppra) 250 mg PO DAILY [facility] Stop: 09/29/17 08:59 Last Admin: 08/04/17 09:56 Dose: 250 mg Levetiracetam (Keppra) 500 mg PO HS [facility] Stop: 09/29/17 20:59 Last Admin: 08/03/17 21:39 Dose: 500 mg Lisinopril (Zestril) 10 mg PO DAILY [facility] Stop: 09/29/17 08:59 Last Admin: 08/04/17 09:57 Dose: Not Given Lorazepam (Ativan) 0.5 mg PO Q4HR PRN; Protocol PRN Reason: Anxiety Stop: 08/29/17 23:15 Magnesium Hydroxide (Milk Of Magnesia) 30 ml PO DAILY PRN PRN Reason: BOWEL MANAGEMENT Stop: 09/28/17 23:27 Pantoprazole Sodium (Protonix) 40 mg PO DAILY [facility] Stop: 09/29/17 08:59 Last Admin: 08/04/17 09:56 Dose: 40 mg Potassium Chloride (Klor-Con) 30 meq PO DAILY [facility] Stop: 09/29/17 08:59 Last Admin: 08/04/17 09:56 Dose: 30 meq Senna (Senna) 17.2 mg PO BID [facility] Stop: 09/29/17 08:59 Last Admin: 08/04/17 09:56 Dose: 17.2 mg Simvastatin (Zocor) 20 mg PO HS [facility] PRN Reason: Protocol Stop: 09/29/17 20:59 Last Admin: 08/03/17 21:39 Dose: 20 mg Vitamin D (Vitamin D) 800 iu PO DAILY [facility] Stop: 09/29/17 08:59 Last Admin: 08/04/17 09:56 Dose: 800 iu Zolpidem Tartrate (Ambien) 5 mg PO HS PRN PRN Reason: Insomnia Stop: 09/28/17 23:15 Last Admin: 08/03/17 21:39 Dose: 5 mg General: alert HEENT: NC/AT, PERRLA Neck: Supple Lungs: CTAB Cardiovascular: RRR, Normal S1, Normal S2, without murmur Abdomen: soft, non-tender, non-distended, positive bowel sound Neurological: alert Internal Medicine Assmt/Plan - Assessment Assessment: depression mild protein calorie malnutrition dm hx cva htn cad dyslipidemia - Plan Plan: monitor BP will adjust bp meds accordingly fall precautions continue current plan of care
--- NOTE | 2017-08-05 03:34 | Progress Notes ---
DATE: 08/04/2017 SUBJECTIVE: Staff was spoken to. The patient is interviewed. Mood is noted to be depressed. Affect is constricted. The patient has suicidal ideation is resolving. The patient's coping skills are noted to be improving. No side effects to the medications are noted. The patient has been on citalopram 10 mg and has been able to tolerate the medication. ASSESSMENT: Impulse control is noted to be improving. The patient is stabilizing. PLAN: To continue the patient with the supportive therapy. I encouraged the patient to verbalize the concerns rather than to act out. JOB# [id number]
[2017-08-05] MEDS: Potassium Chloride 10 mEq ER Tab PO SCH (09:38)
[2017-08-05] MEDS: Pantoprazole 40 mg EC Tab PO SCH (09:38)
[2017-08-05] MEDS: Multivitamin w/ Minerals Tab PO SCH (09:39)
--- NOTE | 2017-08-05 12:28 | Internal Medicine Prog Note ---
Internal Medicine Subjective - Subjective Service Date: 08/05/17 Patient is:: awake, in wheelchair Per staff patient has:: no adverse event, agitated, tolerating meds Internal Medicine Objective - Results Result Diagrams: 07/30/17 19:33 07/30/17 19:33 Recent Labs: Laboratory Last Values WBC 10.7 Th/cmm (4.8-10.8) 07/30/17 19:33 RBC 5.03 Mil/cmm (3.80-5.80) 07/30/17 19:33 Hgb 13.9 gm/dL (12-16) 07/30/17 19:33 Hct 42.3 % (41.0-60) 07/30/17 19:33 MCV 84.0 fl (80-99) 07/30/17 19:33 MCH 27.6 pg (27.0-31.0) 07/30/17 19:33 MCHC Differential 32.9 pg (28.0-36.0) 07/30/17 19:33 RDW 14.2 % (11.5-20.0) 07/30/17 19:33 Plt Count 184 Th/cmm (150-400) 07/30/17 19:33 MPV 11.3 fl 07/30/17 19:33 Neutrophils % 62.2 % (40.0-80.0) 07/30/17 19:33 Lymphocytes % 27.6 % (20.0-50.0) 07/30/17 19:33 Monocytes % 7.9 % (2.0-10.0) 07/30/17 19:33 Eosinophils % 2.0 % (0.0-5.0) 07/30/17 19:33 Basophils % 0.3 % (0.0-2.0) 07/30/17 19:33 Sodium 141 mEq/L (136-145) 07/30/17 19:33 Potassium 3.5 mEq/L (3.5-5.1) 07/30/17 19:33 Chloride 106 mEq/L (98-107) 07/30/17 19:33 Carbon Dioxide 29.1 mEq/L (21.0-31.0) 07/30/17 19:33 Anion Gap 9.4 (7.0-16.0) 07/30/17 19:33 BUN 17 mg/dL (7-25) 07/30/17 19:33 Creatinine 1.5 mg/dL (0.7-1.3) H 07/30/17 19:33 Est GFR ( Amer) 59.5 ml/min (>90) 07/30/17 19:33 Est GFR (Non-Af Amer) 49.2 ml/min 07/30/17 19:33 BUN/Creatinine Ratio 11.3 07/30/17 19:33 Glucose 108 mg/dL (70-105) H 07/30/17 19:33 Hemoglobin A1c % 7.0 % (4.0-6.0) H 07/30/17 19:33 Calcium 9.7 mg/dL (8.6-10.3) 07/30/17 19:33 Total Bilirubin 0.4 mg/dL (0.3-1.0) 07/30/17 19:33 AST 13 U/L (13-39) 07/30/17 19:33 ALT 14 U/L (7-52) 07/30/17 19:33 Alkaline Phosphatase 59 U/L (34-104) 07/30/17 19:33 Total Protein 6.9 gm/dL (6.0-8.3) 07/30/17 19:33 Albumin 3.9 gm/dL (4.2-5.5) L 07/30/17 19:33 Globulin 3.0 gm/dL 07/30/17 19:33 Albumin/Globulin Ratio 1.3 (1.0-1.8) 07/30/17 19:33 Triglycerides 104 mg/dL (<150) 07/30/17 19:33 Cholesterol 139 mg/dL (<200) 07/30/17 19:33 LDL Cholesterol Direct 85 mg/dL (75-193) 07/30/17 19:33 HDL Cholesterol 43 mg/dL (23-92) 07/30/17 19:33 TSH 1.58 uIU/ml (0.34-5.60) 07/30/17 19:33 Salicylates < 25.0 mg/L (30.0-100.0) L 07/30/17 19:33 Acetaminophen < 10.0 ug/mL (10.0-30.0) L 07/30/17 19:33 Ethyl Alcohol < 10 mg/dL (0-10) 07/30/17 19:33 RPR NONREACTIVE (NONREACTIVE) 07/30/17 19:33 - Physical Exam Vitals and I&O: Vital Signs Temp 97.3 F 08/05/17 06:03 Pulse 68 08/05/17 06:03 Resp 18 08/05/17 06:03 BP 123/76 08/05/17 06:03 Pulse Ox 94 08/05/17 06:03 Intake & Output 08/04/17 08/05/17 08/05/17 18:59 06:59 18:59 Intake Total 1000 480 Balance 1000 480 Intake: Oral 1000 480 Other: # Voids 4 1 # Bowel Movements 2 1 Active Medications: Current Medications Acetaminophen/Hydrocodone Bitart (Nazareth 5mg/325mg) 1 tab PO BID PRN PRN Reason: Pain (Moderate) Stop: 09/28/17 23:27 Amlodipine Besylate (Norvasc) 10 mg PO QPM [facility] Stop: 09/29/17 16:59 Last Admin: 08/04/17 17:52 Dose: Not Given Aspirin (Ecotrin) 81 mg PO DAILY [facility] Stop: 09/29/17 15:14 Last Admin: 08/05/17 09:38 Dose: 81 mg Bisacodyl (Dulcolax 10 Mg Supp) 10 mg RC DAILY PRN PRN Reason: IF MOM INEFFECTIVE Stop: 09/28/17 23:27 Calcium Carbonate (Os-James) 500 mg PO BID [facility] Stop: 09/29/17 08:59 Last Admin: 08/05/17 09:38 Dose: 500 mg Citalopram Hydrobromide (Celexa) 10 mg PO DAILY [facility] Stop: 09/30/17 17:58 Last Admin: 08/05/17 09:38 Dose: 10 mg Clopidogrel Bisulfate (Plavix) 75 mg PO DAILY [facility] Stop: 09/29/17 08:59 Last Admin: 08/05/17 09:39 Dose: 75 mg Docusate Sodium (Colace) 200 mg PO BID [facility] Stop: 09/29/17 08:59 Last Admin: 08/05/17 09:39 Dose: Not Given Furosemide (Lasix) 40 mg PO 0900 [facility] Stop: 10/01/17 14:45 Last Admin: 08/05/17 09:39 Dose: Not Given Furosemide (Lasix) 40 mg PO 1800 [facility] Stop: 10/01/17 17:59 Last Admin: 08/04/17 17:53 Dose: Not Given Levetiracetam (Keppra) 250 mg PO DAILY [facility] Stop: 09/29/17 08:59 Last Admin: 08/05/17 09:38 Dose: 250 mg Levetiracetam (Keppra) 500 mg PO HS [facility] Stop: 09/29/17 20:59 Last Admin: 08/04/17 20:46 Dose: 500 mg Lisinopril (Zestril) 10 mg PO DAILY [facility] Stop: 09/29/17 08:59 Last Admin: 08/05/17 09:39 Dose: Not Given Lorazepam (Ativan) 0.5 mg PO Q4HR PRN; Protocol PRN Reason: Anxiety Stop: 08/29/17 23:15 Magnesium Hydroxide (Milk Of Magnesia) 30 ml PO DAILY PRN PRN Reason: BOWEL MANAGEMENT Stop: 09/28/17 23:27 Pantoprazole Sodium (Protonix) 40 mg PO DAILY [facility] Stop: 09/29/17 08:59 Last Admin: 08/05/17 09:38 Dose: 40 mg Potassium Chloride (Klor-Con) 30 meq PO DAILY [facility] Stop: 09/29/17 08:59 Last Admin: 08/05/17 09:38 Dose: 30 meq Senna (Senna) 17.2 mg PO BID [facility] Stop: 09/29/17 08:59 Last Admin: 08/05/17 09:39 Dose: Not Given Simvastatin (Zocor) 20 mg PO HS [facility] PRN Reason: Protocol Stop: 09/29/17 20:59 Last Admin: 08/04/17 20:46 Dose: 20 mg Vitamin D (Vitamin D) 800 iu PO DAILY [facility] Stop: 09/29/17 08:59 Last Admin: 08/05/17 09:38 Dose: 800 iu Zolpidem Tartrate (Ambien) 5 mg PO HS PRN PRN Reason: Insomnia Stop: 09/28/17 23:15 Last Admin: 08/03/17 21:39 Dose: 5 mg General: alert HEENT: NC/AT, PERRLA Neck: Supple Lungs: CTAB Cardiovascular: RRR, Normal S1, Normal S2, without murmur Abdomen: soft, non-tender, non-distended, positive bowel sound Neurological: alert Internal Medicine Assmt/Plan - Assessment Assessment: depression mild protein calorie malnutrition dm hx cva htn cad dyslipidemia - Plan Plan: monitor BP will adjust bp meds accordingly fall precautions continue current plan of care Nutritional Asmnt/Malnutr-PDOC - Dietary Evaluation Malnutrition Findings (Please click <Entered> for more info): Nutritional Asmnt/Malnutrition Start: 08/04/17 17: 15 Text: Status: Complete Freq: Document 08/04/17 17:15 PHILOMENA (Rec: 08/04/17 17:22 [email or web address] Nutritional Asmnt/Malnutrition Patient General Information Nutritional Screening Moderate Risk Diagnosis psychosis Pertinent Medical Hx/Surgical Hx HTN, DM, CAD, CVA, TIA, dyslipidemia Subjective Information Per EMR, PO intake 75-100% Current Diet Order/ Nutrition Support sumeet, NCS Pertinent Medications os-James, colace, lasix, protonix, kcl, senna, vit D Pertinent Labs 07/30 Cr 1.5, glucose 108, A1c 7.0 Nutritional Hx/Data Height 5 ft 6 in Height (Calculated Centimeters) 167.6 Current Weight (lbs) 220 lb Weight (Calculated Kilograms) 99.8 Weight (Calculated Grams) 36018.3 Mclean Body Weight 142 Body Mass Index (BMI) 35.5 Weight Status Obese GI Symptoms GI Symptoms None Last BM 4/2 Difficult in: None Food Allergies Yes: seeds nuts Skin Integrity/Comment: intact Current %PO Good (75-100%) Estimated Nutritional Goals BEE in Kcals: Adj wt of IBW Calories/Kcals/Kg 25-30 Kcals Calculated 0090-7561 Protein: Adj wt of IBW Protein g/k-1.2 Protein Calculated 73-87 Fluid: ml 1825-2190ml (1ml/kcal) Nutritional Problem 1. Problem Problem altered nutrition related lab Etiology hx of DM Signs/Symptoms: glucose 108, A1c 7.0 Intervention/Recommendation Comments 1. Continue with current diet as ordered. 2. Monitor PO intake, wt, labs and skin integrity 3. F/U as low risk in 7 days, 08/11 Expected Outcomes/Goals Expected Outcomes/Goals 1. PO intake to meet at least 75% of nutritional needs. 2. Wt stability, skin to remain intact, labs to approach WNL.
--- NOTE | 2017-08-05 19:41 | Progress Notes ---
DATE: 08/05/2017 SUBJECTIVE: Staff was spoken to. The patient is interviewed. Mood is noted to be depressed. The patient is isolative and withdrawn, but patient is denying any suicidal ideation today. The patient has been able to tolerate the medications such as the citalopram. No side effects to the medications are noted at this time. The patient is currently on 10 mg. ASSESSMENT: The patient is still depressed. PLAN: To continue the patient with the supportive therapy and followup. JOB# [id number]
[2017-08-06] MEDS: Multivitamin w/ Minerals Tab PO SCH (09:41)
[2017-08-06] MEDS: Pantoprazole 40 mg EC Tab PO SCH (09:42)
[2017-08-06] MEDS: Potassium Chloride 10 mEq ER Tab PO SCH (09:43)
--- NOTE | 2017-08-06 14:27 | Discharge Summary ---
DATE OF DISCHARGE: 08/06/2017 IDENTIFYING DATA: The patient is a 71-year-old -[place] Citizen [facility] JUSTIFICATION OF HOSPITALIZATION: The patient is admitted here for his aggressive behavior and depression. CHIEF COMPLAINT: "I am upset." DIAGNOSES AT THE TIME OF ADMISSION: AXIS 1: Major depressive disorder, recurrent and moderate. AXIS II: None. AXIS III: As per Dr. Bey. HISTORY OF PRESENT ILLNESS: Please refer the 07/31/2017 dictation done by me. HOSPITAL COURSE AND RESPONSE TO TREATMENT: The patient had the physical examination done by Dr. Bey and it is noted to be significant for hemiplegia, hypertension, seizure disorder, diabetes mellitus type 2, chronic kidney disease, and hyperlipidemia. The patient has been closely monitored and has been started on the citalopram, which was gradually increased to 10 mg and the patient has been closely monitored and was able to participate in the groups and the patient was finally discharged with recommendation that he is going to be seeking treatment on an outpatient basis. MENTAL STATUS EXAMINATION: At the time of discharge, the patient's mood is noted to be anxious. Affect is appropriate. Not suicidal or homicidal. Insight and judgment were fair. Impulse control is noted to be fair. No side effects to the medications are noted at the time of discharge. CONDITION AT THE TIME OF DISCHARGE: Stable. DIAGNOSES AT THE TIME OF DISCHARGE: AXIS I: Major depressive disorder, recurrent and moderate. AXIS II: None. AXIS III: Hypertension, chronic kidney disease, hyperlipidemia and hemiplegia. AFTERCARE PLAN: The patient is discharged to [facility] for further care. [facility]# [id number]
== END 2017-08-06 11:30 | DRG 885 ==
LOC: ER 17:45 → GERO2 21:00
PROVIDERS: ADMIT Psychiatry & Neurology Psychiatry; ATTEND Psychiatry & Neurology Psychiatry
DX: F33.1 Major depressive disorder, recurrent, moderate (principal); N18.9 Chronic kidney disease, unspecified; E44.1 Mild protein-calorie malnutrition; I69.359 Hemiplegia and hemiparesis following cerebral infarction affecting unspecified side; I25.10 Atherosclerotic heart disease of native coronary artery without angina pectoris; E78.5 Hyperlipidemia, unspecified; G40.909 Epilepsy, unspecified, not intractable, without status epilepticus; E11.21 Type 2 diabetes mellitus with diabetic nephropathy; E11.22 Type 2 diabetes mellitus with diabetic chronic kidney disease; I12.9 Hypertensive chronic kidney disease with stage 1 through stage 4 chronic kidney disease, or unspecified chronic kidney disease; Z88.0 Allergy status to penicillin; Z68.35 Body mass index [BMI] 35.0-35.9, adult; Z83.3 Family history of diabetes mellitus; Z82.49 Family history of ischemic heart disease and other diseases of the circulatory system
CPT/HCPCS: 36415-UA; 80053-TC; 80061-TC; 80320-TC; 80329-TC; 83036-90; 84443-TC; 85025-TC; 86592-TC; 93005; Z7610